=== PATIENT | female | born 1935 | race African-American/Black ===

== ENCOUNTER 2016-12-14 05:54 | Day surgery (SDC) | payer OTHER ==
[~2016-12-14] VITALS: Ht 154.9 cm; Wt 65.8 kg
[2016-12-14] VITALS (10 sets, daily range): BP systolic 137–177; BP diastolic 65–87
[~2016-12-14 05:54] MED LIST: ALLEGRA-D 12 H1 EACH PO; AMLODIPINE BESYL5 MG ORAL; ATENOLOL25 MG ORAL; Akten 3.5% 1ml Btl ONE; CRESTOR40 MG ORAL; Diclofenac Sod 0.1% Op Soln ONE; FLUTICASONE PRO16 G1 NASAL; Gatifloxacin Opth Solution 0.5% ONE; METFORMIN HCL500 M1 ORAL; NIFEDIPINE PO; POTASSIUM600 MG PO; Phenylephrine 2.5% Op Soln ONE; Tobradex Opth Susp 2.5ml ONE; Tropicamide 1% Opth Soln ONE; VITAMIN C250 MG ORAL; VITAMIN C500 M1 ORAL; VITAMIN D1000 UNI1 ORAL
[2016-12-14] MEDS: Akten 3.5% 1ml Btl LEFT EYE SCH ×3 (06:28→06:43)
[2016-12-14] MEDS: Phenylephrine 2.5% Op Soln LEFT EYE SCH ×3 (06:28→06:43)
[2016-12-14] MEDS: Tropicamide 1% Opth Soln LEFT EYE SCH ×3 (06:28→06:43)
[2016-12-14] MEDS: Tobradex Opth Susp 2.5ml LEFT EYE SCH ×3 (06:28→06:43)
[2016-12-14] MEDS: Gatifloxacin Opth Solution 0.5% LEFT EYE SCH ×3 (06:28→06:44)
[2016-12-14] MEDS: Diclofenac Sod 0.1% Op Soln LEFT EYE SCH ×3 (06:28→06:44)
[2016-12-14] MEDS ORDERED: BSS 500ml btl ONE (07:00)
[2016-12-14] MEDS ORDERED: Lidocaine 1% MPF 10mg/ml 5ml ONE (07:01)
[2016-12-14] MEDS ORDERED: acetaZOLAMIDE 500mg Inj ONE (07:01)
[2016-12-14] MEDS ORDERED: Carbachol 0.01% Op Soln 1.5ml vial ONE (07:02)
[2016-12-14] MEDS ORDERED: Povidone-Iodine 5% opth solution ONE (07:02)
[2016-12-14] MEDS ORDERED: Dexamethasone 4mg/ml vial ONE (07:02)
[2016-12-14] MEDS ORDERED: EPINEPHrine 1mg/1ml Amp ONE (07:03)
[2016-12-14] MEDS ORDERED: BSS 15ml BTL ONE (07:03)
[2016-12-14] MEDS ORDERED: Sodium Hyaluronate 14 mg/ml 0.85ml ONE (07:03)
[2016-12-14] MEDS ORDERED: DiphenhydrAMINE 50mg/ml Inj ONE (07:25)
[2016-12-14] MEDS ORDERED: LR 1000ml 1,000 ML IVLG SCH (07:31)
--- NOTE | 2016-12-14 07:31 | Anethesia Preoperative Eval ---
Anesthesia Pre-op PMH/ROS General Date of Evaluation: December 14, 2016 Time of Evaluation: 07:28 Anesthesiologist: Devyn ASA Score: ASA 2 Mallampati Score Class I : Soft palate, uvula, fauces, pillars visible Class II: Soft palate, uvula, fauces visible Class III: Soft palate, base of uvula visible Class IV: Only hard plate visible Mallampati Classification: Class II Surgeon: Bassem Diagnosis: L eye cataract Surgical Procedure: L eye cataract extraction with IOL Anesthesia History: none Family History: no anesthesia problems Allergies: Coded Allergies: [id number] REDUCTASE INHIBITOR (Verified Allergy, Severe, 12/13/16) EXCESSIVELY SEVERE PAIN Whole Milk (Verified Allergy, Severe, 12/13/16) SEVERE VOMITING Uncoded Allergies: BABY POWDER (Allergy, Severe, 12/13/16) CANNOT BREATHE PENICILLIN (Allergy, Severe, Rash, 12/13/16) RASH AND GENERAL SWELLING ENVIRONMENTAL-SEASONAL (Allergy, Intermediate, 12/13/16) sneezing PNEUMONIA VACCINE (Allergy, Intermediate, Rash, 12/13/16) SKIN RASH, GENERALLY FATIGUE, LIGHT HEADED Past Medical History Cardiovascular: Reports: HTN, Denies: CAD, [place], arrhythmia, other, valve dz Pulmonary: Denies: COPD, ROSALEE, asthma, other Gastrointestinal/Genitourinary: Reports: GERD, Denies: CRI, ESRD, other Neurologic/Psychiatric: Reports: other - chronic pain, Denies: CVA, TIA, dementia, depression/anxiety Endocrine: Reports: DM - stable on pills, Denies: hypothyroidism, other, steroids HEENT: Reports: cataract (L), cataract (R) Hematology/Immune: Denies: DVT, anemia, bleeding disorder, other Musculoskeletal/Integumentary: Reports: DJD, Denies: DDD, OA, RA, edema, other PMH Narrative: as above PSxH Narrative: see chart Anesthesia Pre-op Phys. Exam Physician Exam Last Vital Signs Date Time Temp Pulse Resp B/P Pulse Ox O2 Delivery O2 Flow Rate FiO2 12/14/16 06:42 97.5 71 18 148/87 99 Room Air Constitutional: NAD Neurologic: CN 2-12 intact Cardiovascular: RRR, no M/R/G Respiratory: CTA Gastrointestinal: S/NT/ND Airway Exam Mallampati Score: Class II MO: limited Neck: stiff ROM: limited Teeth: missing Dentures: lower, upper Anesthesia Pre-op A/P Labs see chart Studies Pre-op Studies: EKG - NSR Risk Assessment & Plan Assessment: ASA 2 Plan: MAC Status Change Before Surgery: No Pre-Antibiotics Drug: none LARA MONTAÑO M.D. December 14, 2016 07:31
--- NOTE | 2016-12-14 07:43 | Pre-Procedure Note/Attestation ---
Pre-Procedure Note/Attestation Complete Prior to Procedure Planned Procedure: left Procedure Narrative: cataract extraction with implant left eye Indications for Procedure Pre-Operative Diagnosis: cataract left eye Attestation I attest that I discussed the nature of the procedure; its benefits; risks and complications; and alternatives (and the risks and benefits of such alternatives ), prior to the procedure, with the patient (or the patient's legal commercial pest control representative). I attest that, if there was a reasonable possibility of needing a blood transfusion, the patient (or the patient's legal commercial pest control representative) was given the [facility] standardized written summary, pursuant to the [place] Blood Safety Act ([place] [facility] and Safety Code # 1645, as amended). I attest that I re-evaluated the patient just prior to the surgery and that there has been no change in the patient's H&P, except as documented below: RAISA HARVEY December 14, 2016 07:43
[2016-12-14] MEDS ORDERED: Propofol 10mg/ml 20ml IV ONE (07:45)
[2016-12-14] MEDS ORDERED: fentaNYL 100 mcg/2 mL IV PRN (07:45)
[2016-12-14] MEDS ORDERED: LR 1000ml ONE (07:45)
[2016-12-14] MEDS ORDERED: DiphenhydrAMINE 50mg/ml Inj IVP PRN (07:45)
[2016-12-14] MEDS ORDERED: Sterile Water Irrig 1000ml IRRIG ONE (07:45)
[2016-12-14] MEDS ORDERED: NS Irrig 1000ml ONE (07:45)
[2016-12-14] MEDS ORDERED: fentaNYL 100 mcg/2 mL IV ONE (07:45)
--- NOTE | 2016-12-14 08:15 | Brief Operative Note ---
Immediate Post Operative Note Operative Note Pre-op Diagnosis: cataract left eye Procedure: phacoemulsification of cataract with implant left eye Post-op Diagnosis: same as pre-op Surgeon: raisa ramirez Irrigator Valve Pipe: none Anesthesiologist: areli whipple Anesthesia: MAC Specimen: none Complications: none Condition: stable Estimated Blood Loss: none Drains: none Implant(s) used?: Yes RAISA RAMIREZ December 14, 2016 08:15
--- NOTE | 2016-12-14 08:48 | Immediate Post-Op Evaluation ---
Immediate Post-Op Evalulation Immediate Post-Op Evalulation Procedure: L eye cataract extraction with IOL Date of Evaluation: December 14, 2016 Time of Evaluation: 08:16 IV Fluids: 200 Blood Products: none Estimated Blood Loss: none Urinary Output: none Blood Pressure Systolic: 156 Blood Pressure Diastolic: 68 Pulse Rate: 72 Respiratory Rate: 20 O2 Sat by Pulse Oximetry: 99 Temperature (Fahrenheit): 97.5 Pain Score (1-10): 1 Nausea: No Vomiting: No Complications none Patient Status: awake, patent, none Hydration Status: adequate LARA MONTAÑO M.D. December 14, 2016 08:47
--- NOTE | 2016-12-14 10:01 | Operative Note - Dictated ---
DATE OF OPERATION: 12/14/2016 PREOPERATIVE DIAGNOSIS: Cataract, left eye. POSTOPERATIVE DIAGNOSIS: Cataract, left eye. PROCEDURE: Phacoemulsification of cataract, left eye with placement of posterior chamber intraocular lens. SURGEON: Naren Luevano M.D. ([place]) ANESTHESIA: Mac/topical. ANESTHESIOLOGIST: Preet Shepard M.D. INDICATION FOR PROCEDURE: Poor vision, left eye. DESCRIPTION OF FINDINGS: Nuclear sclerotic, cortical and posterior subcapsular cataract, left eye. DESCRIPTION OF PROCEDURE: The patient received a topical anesthetic block consisting of 3.5% Akten eye drops. The eye was then prepped and draped in usual manner. A lid speculum was placed. An operating Zeiss microscope was positioned. A temporal corneal groove was made with a joellen blade. A SuperSharp blade made a stab incision at the 6 o'clock position. A 0.1 mL of 1% nonpreserved intracameral lidocaine was injected. Healon was instilled into the anterior chamber and a 2.5/2.8 mm trapezoidal joellen blade was used to complete the temporal corneal wound. A cystotome was used to create an anterior capsular flap. Utrata forceps were used to clear capsulorrhexis. BSS on a cannula was used to hydrodissect the nucleus. The lens nucleus phacoemulsified in a phaco-fracture technique. Remaining cortical material was removed with the I/A and the posterior capsule polished with the I/A on Cap vac. Healon was instilled into the capsular bag and anterior chamber and an Tay for one-piece posterior neck lens model ZCB00, power 23.5 diopter, serial #[id number] was placed in the injector. The lens was put into the capsular bag. The I/A tip was used to remove the Healon and position the lens. The wound edge was hydrated with BSS and a blunt-tipped cannula. The wound was checked and found to be watertight. The lid speculum was removed and a drop of TobraDex and Zymaxid was placed. A clear plastic shield was taped over the eye. The patient tolerated the procedure well and left the operating room in good condition. Naren Luevano M.D. ([facility]) DR: QUYNH JOB#: [id number] CC: MTDD
--- NOTE | 2016-12-14 12:11 | 48 Hour Post Anesthesia Eval ---
Post Anesthesia Evaluation Procedure: L eye cataract extraction with IOL Date of Evaluation: December 14, 2016 Time of Evaluation: 12:10 Blood Pressure Systolic: 152 0: 74 Pulse Rate: 68 Respiratory Rate: 20 Temperature (Fahrenheit): 97.6 O2 Sat by Pulse Oximetry: 98 Airway: patent Nausea: No Vomiting: No Pain Intensity: 1 Hydration Status: adequate Cardiopulmonary Status: stable Mental Status/LOC: patient returned to baseline Follow-up Care/Observations: n/a Post-Anesthesia Complications: none Follow-up care needed: ready to discharge LARA MONTAÑO M.D. December 14, 2016 12:11
== END 2016-12-14 10:15 | disposition home or self-care (01) ==
LOC: SUR 05:54
DX: H25.12 Age-related nuclear cataract, left eye (principal); H25.042 Posterior subcapsular polar age-related cataract, left eye; E11.22 Type 2 diabetes mellitus with diabetic chronic kidney disease; I12.9 Hypertensive chronic kidney disease with stage 1 through stage 4 chronic kidney disease, or unspecified chronic kidney disease; N18.2 Chronic kidney disease, stage 2 (mild); E11.42 Type 2 diabetes mellitus with diabetic polyneuropathy; E13.51 Other specified diabetes mellitus with diabetic peripheral angiopathy without gangrene; I70.209 Unspecified atherosclerosis of native arteries of extremities, unspecified extremity; M19.90 Unspecified osteoarthritis, unspecified site; M81.0 Age-related osteoporosis without current pathological fracture; J30.9 Allergic rhinitis, unspecified; E55.9 Vitamin D deficiency, unspecified; E78.5 Hyperlipidemia, unspecified; R26.9 Unspecified abnormalities of gait and mobility; M51.16 Intervertebral disc disorders with radiculopathy, lumbar region; Z78.0 Asymptomatic menopausal state; E66.3 Overweight; M41.9 Scoliosis, unspecified; K21.9 Gastro-esophageal reflux disease without esophagitis; Z87.891 Personal history of nicotine dependence; Z90.710 Acquired absence of both cervix and uterus; Z79.82 Long term (current) use of aspirin; Z79.84 Long term (current) use of oral hypoglycemic drugs; Z88.0 Allergy status to penicillin; Z88.7 Allergy status to serum and vaccine; Z88.8 Allergy status to other drugs, medicaments and biological substances
CPT/HCPCS: 66984; 82962; J0171; J1100; J1200; J2704; J3010; J7120; V2632; 94003; 94150